=== PATIENT | male | born 1960 | race Caucasian/White ===

== ENCOUNTER 2016-10-14 09:52 | Observation (INO) ==
[2016-10-14] MEDS ORDERED: MORPHINE 2 MG/1 ML SYRINGE IV PRN (10:08)
[2016-10-14] MEDS ORDERED: NITROGLYCERIN 2% OINT 1 INCH/GM PACK TOP STA (10:08)
[2016-10-14] MEDS ORDERED: METOPROLOL TARTRATE 5 MG/5 ML VIAL IV STA (10:08)
[2016-10-14] MEDS ORDERED: ENOXAPARIN 100 MG/ML SYRINGE SUBCUT STA (10:08)
[2016-10-14] MEDS ORDERED: ASPIRIN 325 MG TABLET PO STA (10:08)
[2016-10-14] MEDS ORDERED: ONDANSETRON 4 MG/2 ML VIAL IV PRN (10:08)
[2016-10-14] MEDS ORDERED: NITROGLYCERIN SL 0.4 MG TABLET SL PRN (10:08)
--- NOTE | 2016-10-14 10:11 | EKG Report ---
Stationary ECG Study 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
--- NOTE | 2016-10-14 10:31 | Emergency Department Note ---
Shaheen Martinez Manpreet, am scribing for, and in the presence of, Tera Angeles MD 10: 12. Bridgette Martinez James D, MD, personally performed the services described in this documentation, ascribed by Jackson Jamison in my presence, and it is both accurate and complete . Arrival - Arrival Chief Complaint: Chest Pain Stated Complaint: CHEST PAINS ED Nursing Triage Note: PT C/O MID STERNAL CHEST PAIN X1 WEEK. DESCRIBES "TIGHT." PT STATES HE FEELS LIKE HE NEEDS TO BURP AND CAN NOT. PT SAW DR TURCIOS LAST WEEK FOR SHORTNESS OF BREATH AND WAS PUT ON ANORO INHALER. DENIES DIAPHORESIS OR NAUSEA WITH EPISODES Mode of Arrival: Ambulatory Limitations: No Limitations Source: Patient, RN Notes Reviewed - History of Present Illness HPI Narrative: Pt is a 56 y/o male who presents to the ED with CC of non-radiating CP since the last week. Pt describes the pain as having "pressure" and feels like he needs to burp. Pt denies any diaphoresis, N/V, or cough. Pt c/o SOB that has worsened today and made the pt come to the ED. Pt denies smoking cigarettes but chews tobacco. The pain does not radiate anywhere and the pt denies any arm pain. No other pains/complaints reported to the ED. Onset (ago): week(s) (1 week) Consistency: intermittent Severity: mild, moderate Quality: other (Pressurized ) Allergies/Adverse Reactions: Allergies Allergy/AdvReac Type Severity Reaction Status Date / Time No Known Allergies Allergy Verified 10/14/16 10:02 Review of System - Review of System 12 point system: reviewed and no additional remarkable complaints except as stated - Review of System Constitutional: Absent: chills, diaphoresis, fever Head/Ears/Nose/Throat: Absent: sore throat Respiratory: Present: respiratory distress. Absent: cough, wheezing Cardiovascular: Present: chest pain Gastrointestinal: Absent: abdominal pain, nausea, vomiting, diarrhea Musculoskeletal: Absent: arm pain, back pain Neurological: Absent: headache, weakness, numbness, paresthesias Medical,Surgical,& Family Hx - Medical History Cardio: History of: Hypertension, PVD Endocrine: History of: Diabetes Mellitus (IDDM), Dyslipidemia Gastrointestinal: History of: GERD Other: History of: Miscellaneous Medical Problems (BILATERAL FASCIITIS RELEASE) - Surgical History Orthopedic Surgeries: Surgical HX of;: Orthopedic Surgery (RIGHT 3RD DIGIT) - Social History Smoking Status: Never smoker Frequency of Alcohol Use: None Type of Drug Use: None Exam Vital Signs: Vital Signs Temperature 98.1 F 10/14/16 10:12 Pulse Rate 71 10/14/16 10:12 Respiratory Rate 18 10/14/16 10:12 Blood Pressure 169/92 10/14/16 10:12 O2 Sat by Pulse Oximetry 98 10/14/16 10:09 GENERAL: This is a well-nourished well-developed white male in no apparent distress. VITAL SIGNS: Reviewed HEENT: Head is atraumatic and normocephalic. Pupils are equal round react to light. Extraocular movements are intact. Oropharynx is benign with moist mucous membranes. NECK: Neck is soft and supple without tenderness. There are no masses. There is no lymphadenopathy. LUNGS: Lungs are clear to auscultation. Chest rises symmetrically. There is no chest wall tenderness. CV: Heart is regular rate and rhythm without murmurs rubs or gallops. ABDOMEN: Abdomen is soft, nontender to palpation. There are no abdominal abnormal masses palpated. There is no organomegaly. Bowel sounds are present and active. SKIN: Skin is warm and dry. No rash. EXTREMITIES: Patient has full range of motion without tenderness. There is no pedal edema. NEUROLOGIC: Awake alert and oriented 4. Cranial nerves II through XII are grossly intact. Motor is 5 over 5 in all extremities bilaterally. Course - Consultations Consultation #1: Discussed with cardiology. Patient will be seen in the emergency department. Time: 11:31 Results - Labs CBC & BMP: 10/14/16 10:28 10/14/16 10:28 Lab Results: I have reviewed the patients labs - EKG EKG results: interpreted by ERMD - Impressions EKG: Normal sinus rhythm with a rate of 63, first-degree AV block, left atrial enlargement, nonspecific ST-T wave changes. - Diagnostic Findings Procedure: Chest x-ray: image reviewed by me Disposition Clinical Impression: Chest pain, Essential hypertension Case discussed with: patient Disposition: Still a Patient Condition: Stable
[2016-10-14] MEDS ORDERED: ENOXAPARIN 120 MG/0.8 ML SYRINGE SUBCUT ONE (10:34)
--- NOTE | 2016-10-14 10:34 | XRay Report ---
2 view chest. Indication: Chest pain. The heart is normal in size. The lung denton are hyperexpanded. The pulmonary vasculature is normal. The lung denton are free of infiltrate. No pneumothorax or pleural effusion. Anterior wedging of multiple thoracic vertebra. Demineralization and degenerative change. Impression: No acute cardiopulmonary abnormality. Hyperexpansion of the lung denton may indicate a degree of COPD. Multiple thoracic compression fractures. PROCEDURE INTERPRETED AT [facility] DEPARTMENT OF RADIOLOGY Final Report Signed by: Dr. Annita Aguilar
[2016-10-14 10:35] LABS: Basophils % 0.4 % (0.0-0.8); Eosinophils # 0.2 10*3/uL (0.0-0.87); Eosinophils % 2.7 % (0.00-10.9); Hematocrit 38.1 VOL% (42.0-52.0); Hemoglobin 13.3 GM/DL (14.0-18.0); Immature Granulocytes % 0.7 %; Immature Granulocytes Absolute 0.06 #; Lymphocytes # 1.7 10*3/uL (1.4-4.0); Lymphocytes % 18.9 % (21.2-54.2); Mean Corpuscular HGB Conc 34.9 GM/DL (32-36); Mean Corpuscular Hemoglobin 31 PG (27-34); Mean Platelet Volume 9.3 FL (9.6-12.0); Monocytes # 0.8 10*3/uL (0.11-0.8); Monocytes % 8.5 % (1.7-12.7); Neutrophils # 6.1 10*3/uL (1.4-7.4); Neutrophils % 68.8 % (38.7-73.9); Platelet Count 281 T/CUMM (130-400); Red Blood Count 4.28 MC/CUMM (3.8-5.5); White Blood Count 8.9 T/CUMM (4-12)
[2016-10-14] MEDS ORDERED: METOPROLOL TARTRATE 5 MG/5 ML VIAL IV ONE (10:35)
[2016-10-14] MEDS ORDERED: NITROGLYCERIN 2% OINT 1 INCH/GM PACK TOP ONE (10:35)
[2016-10-14] MEDS ORDERED: ASPIRIN 325 MG TABLET ONE (10:35)
[2016-10-14 10:44] LABS: PT Patient Result 10.7 SECS; Partial Thromboplastin Time 24.5 SECS (0-40)
[2016-10-14] MEDS ORDERED: ALUM/MAG/SIMETH/LIDO VISC 1:1 30 ML BOTTLE PO ONE (10:54)
[2016-10-14] MEDS ORDERED: ALUM/MAG/SIMETH/LIDO VISC 1:1 30 ML BOTTLE PO STA (10:57)
[2016-10-14 11:02] LABS: Albumin 3.8 G/DL (3.4-5.0); Bilirubin,Total 0.4 MG/DL (0.2-1.0); Calcium 9.2 MG/DL (8.5-10.1); Osmolality,Calculated 286.4 MOS/KG (273-304); Total Protein 6.9 G/DL (6.4-8.3)
[2016-10-14] MEDS ORDERED: ONDANSETRON 4 MG/2 ML VIAL ONE (12:26)
[2016-10-14] MEDS ORDERED: MORPHINE 2 MG/1 ML SYRINGE ONE (12:26)
[2016-10-14 12:33] LABS: Apearance,Urine CLEAR (Clear); Bilirubin,Urine Negative (Negative); Blood, Urine Negative (Negative); Glucose,Urine (UA) 50 mg/dL (Negative); Ketones,Urine Negative (Negative); Nitrite,Urine Negative (Negative); Protein,Urine Negative; Urine Color Straw (Yellow); Urine Specific Gravity 1.008 (1.001-1.035); Urine Urobilinogen < 2.0 EU/DL (0.2-1.0)
--- NOTE | 2016-10-14 12:33 | Cardiology History & Physical ---
Assessment and Plan - Time spent with patient Time spent with patient: Greater than 30 minutes Time spent discussing smoking cessation with patient: 3 to 10 minutes (1) Dyspnea on exertion Status: Acute Assessment and plan: SEE PLAN OF CARE LISTED BELOW Current Visit: Yes (2) Diabetes Status: Chronic Assessment and plan: SEE PLAN OF CARE LISTED BELOW Current Visit: Yes (3) Sleep apnea Status: Chronic Assessment and plan: SEE PLAN OF CARE LISTED BELOW Current Visit: Yes (4) Obesity (BMI 35.0-39.9 without comorbidity) Status: Chronic Assessment and plan: SEE PLAN OF CARE LISTED BELOW Current Visit: Yes (5) Tobacco chew use Status: Chronic Assessment and plan: SEE PLAN OF CARE LISTED BELOW Current Visit: Yes (6) Dyslipidemia Status: Chronic Assessment and plan: SEE PLAN OF CARE LISTED BELOW Current Visit: Yes (7) Chest pain Status: Acute Current Visit: Yes (8) Essential hypertension Status: Chronic Assessment and plan: SEE PLAN OF CARE LISTED BELOW Current Visit: Yes History of Present Illness Chief complaint: Chest pain, shortness of breath History of present illness: 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 TORRES (NEW) PCP: DR. JACKSON Mr. Delgado, 56WM, with no known prior history of coronary artery disease but risk factors significant for: hypertension, dyslipidemia, diabetes, obesity, ( chews) tobacco. Presented [facility] the ED of [facility] after experiencing intermittent chest discomfort and shortness of breath for the past week. Chest discomfort is described as a fullness in the center of his chest, previously without radiation however today seemed to radiate laterally across his chest. There is no particular pattern to the discomfort, occurring at various times including with rest and with exertion. He does become mildly more short of breath with the discomfort but no nausea or diaphoresis. Patient has noted over the past several weeks, shortness of breath with exertion has worsened. He has contributed this to asthma. He recently saw his primary care provider and was given a medication which initially helped however symptoms of dyspnea on exertion have returned. Rates the discomfort as a 7 on a scale of 1-10, currently chest pain-free. Symptoms are becoming more intense, occurring more frequently. Cardiac biomarkers are negative. EKG does not reveal OR. Patient is currently NPO. We discussed the possibility of stress testing versus cardiac catheterization. At this point, patient would like to pursue heart catheterization. May need echocardiogram prior to discharge. Fasting lipid profile. Will adjust his antihypertensives accordingly during hospital stay. Will further discuss with Dr. Torres and await additional recommendations. ASSESSMENT/PLAN: 1. CHEST PAIN - concerning for angina 2. WATERS - also concerning for angina 3. HYPERTENSION - usually well controlled. Will adjust medications accordingly during hospital stay. 4. DYSLIPIDEMIA - fasting lipid profile. Continue lipid-lowering agent 5. TOBACCO USE - the merits of tobacco cessation (patient chews tobacco) was discussed for greater than 5 minutes 6. OBESITY - dietary counseling prior to discharge 7. SLEEP APNEA - compliant with sleep device 8. DIABETES - difficult to control and followed by Dr. Jackson. Hold metformin in anticipation of possible cardiac catheterization Home Medications Medication Instructions Recorded Confirmed Type Albiglutide [Tanzeum] 50 mg SUBCUT TH 10/14/16 10/14/16 History Aspirin EC Tab 81 mg PO QPM 10/14/16 10/14/16 History Atorvastatin [Lipitor] 10 mg PO QAM 10/14/16 10/14/16 History Fenofibrate [Tricor] 145 mg PO QAM 10/14/16 10/14/16 History Gabapentin Cap/Tab [Neurontin 300 mg PO QAM 10/14/16 10/14/16 History Cap/Tab] Ibuprofen Tab [Motrin Tab] 800 mg PO BID 10/14/16 10/14/16 History Insulin Glargine,Hum.rec.anlog 0 unit SUBCUT DAILY PRN 10/14/16 10/14/16 History [Lantus SoloStar] Metformin HCl 500 mg PO QPM 10/14/16 10/14/16 History Pantoprazole Tab [Protonix Tab] 40 mg PO QAM 10/14/16 10/14/16 History Pioglitazone HCl 30 mg PO QAM 10/14/16 10/14/16 History Telmisartan [Micardis] 80 mg PO QAM 10/14/16 10/14/16 History Umeclidinium Brm/Vilanterol Tr 1 puff INH 1200 10/14/16 10/14/16 History [Anoro Ellipta] hydroCHLOROthiazide 25 mg PO QAM 10/14/16 10/14/16 History [Hydrochlorothiazide] Allergies Allergy/AdvReac Type Severity Reaction Status Date / Time No Known Allergies Allergy Verified 10/14/16 10:02 Review of systems: REVIEW OF SYSTEMS: - Constitutional Constitutional: Present: Fatigue. Absent: syncope, anorexia, night sweats - EENT Eyes: Absent: blurry vision, loss of vision, diplopia Ears: Absent: decreased hearing, ear pain, ear discharge - Cardiovascular Cardiovascular: Present: chest pain with exertion, chest pain at rest. Dyspnea on exertion. Denies edema, palpitations. Absent: chest pain with deep breath, claudication - Respiratory Respiratory: Present: WATERS, denies cough. Absent: wheezing, hemoptysis, change in phlegm color - Gastrointestinal Gastrointestinal: Denies: constipation. Absent: abdominal pain, hematemesis, hematochezia, melena, change in bowel habits, nausea - Genitourinary Genitourinary: Absent: difficulty urinating, dysuria, urinary hesitancy, flank pain - Musculoskeletal Musculoskeletal: Present: Chronic back pain Absent: joint swelling, muscle cramps, muscle weakness - Neurological Neurological: Present: normal gait without frequent falls. Absent: dizziness, hemiparesis - Psychiatric Psychiatric: Absent: anxiety, depression, difficulty concentrating - Endocrine Endocrine: Present: fatigue. Absent: cold intolerance, heat intolerance, polyuria, polyphagia, polydipsia - Hematologic/Lymphatic Hematologic/Lymphatic: Present: easy bruising. Absent: easy bleeding -Integumentary Integumentary: Absent: lesions, rashes, skin breakdown Medical,Surgical,& Family Hx - Medical History Cardio: History of: Hypertension, PVD No history of: CAD, OR Endocrine: History of: Diabetes Mellitus (IDDM), Dyslipidemia Gastrointestinal: History of: GERD Other: History of: Miscellaneous Medical Problems (BILATERAL FASCIITIS RELEASE) - Surgical History Orthopedic Surgeries: Surgical HX of;: Orthopedic Surgery (RIGHT 3RD DIGIT) - Social History Smoking Status: Light tobacco smoker Have you smoked in the last 12 months: Yes (Smokeless tobacco daily) Time spent discussing smoking cessation with patient: 3 to 10 minutes Frequency of Alcohol Use: None Type of Drug Use: None Marital Status: Lives With:: Spouse Functional capacity: independent ambulation Cardiology Physical Exam - Constitutional Vitals: Vital Signs Temp Pulse Resp BP Pulse Ox 98.1 F 71 18 169/92 98 10/14/16 10:12 10/14/16 10:12 10/14/16 10:12 10/14/16 10:12 10/14/16 10:09 Intake and Output 10/13/16 10/14/1610/14/17 23:59 07:59 15:59 Other: Weight 149.685 kg Patient Weight 10/14/16 23:59 Weight 149.685 kg Exam: General: [Appears well with no apparent distress.] [Pleasant and cooperative. ] [Appears comfortable.] HEENT: [PERRL, normocephalic, atraumatic. Mucous membranes moist. No jaundice noted. Conjunctiva moist and clear, sclerae anicteric] Neck: Unable to assess for JVD due to habitus. No thyromegaly or lymphadenopathy noted. No carotid bruit appreciated Cardiac: [Regular rate and rhythm.] [No murmur rub or gallop.] Lungs: [Clear to auscultation without accessory muscle use to assist the respiratory pattern.] Oxygen in use via nasal cannula Abdomen: Soft, bowel sounds normoactive. Nontender and nondistended. No abdominal bruit or thrill noted. No masses noted. Musculoskeletal: No fluid collection. Decreased range of motion is noted. Extremities: No clubbing, cyanosis noted. [ No edema noted.] Upper extremity pulses 2+. Lower extremity pulses 2+. Capillary refill less than 3 seconds. Skin: No unusual lesions or rashes. No skin breakdown appreciated. Neuro: Awake, alert and oriented 3. Moves all extremities well without hemiparesis or paralysis. No essential tremor is appreciated. Result/EKG - Labs CBC & BMP: 10/14/16 10:28 10/14/16 10:28 Lab Results: I have reviewed the past 24 hour labs Labs: Laboratory Results - last 24 hr 10/14/16 10/14/16 10/14/16 10:28 10:28 10:28 WBC 8.9 RBC 4.28 Hgb 13.3 L Hct 38.1 L MCV 89.0 MCH 31 MCHC 34.9 RDW 14.0 Plt Count 281 MPV 9.3 L Neut % (Auto) 68.8 Lymph % (Auto) 18.9 L Antelope % (Auto) 8.5 Eos % (Auto) 2.7 Baso % (Auto) 0.4 Neut # (Auto) 6.1 Lymph # (Auto) 1.7 Antelope # (Auto) 0.8 Eos # (Auto) 0.2 Baso # (Auto) 0.0 Immature Gran % 0.7 Nucleated RBC % 0.0 Immature Gran # 0.06 Nucleated RBCs # 0.00 Immature Plt Fraction 0.0 INR 1.0 PT Patient/Control Mix 10.7 Circ Anticoag PTT 24.5 Sodium 140 Potassium 4.0 Chloride 107 Carbon Dioxide 25 Anion Gap 12.0 BUN 22 H Creatinine 1.10 GFR Calculation 120 BUN/Creatinine Ratio 20.00 Glucose 182 H Calculated Osmolality 286.4 Calcium 9.2 Total Bilirubin 0.40 AST 25 ALT 34 Alkaline Phosphatase 54 Troponin I Total Protein 6.9 Albumin 3.8 Globulin 3.1 Albumin/Globulin Ratio 1.2 10/14/16 10:28 WBC RBC Hgb Hct MCV MCH MCHC RDW Plt Count MPV Neut % (Auto) Lymph % (Auto) Antelope % (Auto) Eos % (Auto) Baso % (Auto) Neut # (Auto) Lymph # (Auto) Antelope # (Auto) Eos # (Auto) Baso # (Auto) Immature Gran % Nucleated RBC % Immature Gran # Nucleated RBCs # Immature Plt Fraction INR PT Patient/Control Mix Circ Anticoag PTT Sodium Potassium Chloride Carbon Dioxide Anion Gap BUN Creatinine GFR Calculation BUN/Creatinine Ratio Glucose Calculated Osmolality Calcium Total Bilirubin AST ALT Alkaline Phosphatase Troponin I < 0.015 Total Protein Albumin Globulin Albumin/Globulin Ratio - Diagnostic Findings Procedure: Chest x-ray: report reviewed by me - EKG EKG results: interpreted by me EKG shows: sinus rhythm
[2016-10-14] MEDS ORDERED: POTASSIUM CHLORIDE RIDER 10 MEQ in PREMIX 1 EACH IV PRN (12:39)
[2016-10-14] MEDS ORDERED: diphenhydrAMINE CAP 25 MG CAPSULE PO ONE (12:39)
[2016-10-14] MEDS ORDERED: DIAZEPAM 5 MG TABLET PO ONE (12:39)
[2016-10-14] MEDS ORDERED: MAGNESIUM SULF RIDER 2 GM in PREMIX 1 EACH IV PRN ×2 (12:39→13:05)
[2016-10-14 12:46] LABS: Barbiturates Screen,Urine Negative (Negative); Benzodiazepines Screen,Urine Negative (Negative); Cannabinoid Screen,Urine Negative (Negative); Opiate Screen,Urine Negative (Negative); Phencyclidine Screen,Urine Negative (Negative)
[2016-10-14] MEDS ORDERED: ALBIGLUTIDE 50 MG SUBCUT SCH (13:05)
[2016-10-14] MEDS ORDERED: SODIUM CHLORIDE 0.9% 1,000 ML IV SCH (13:05)
[2016-10-14] MEDS ORDERED: MAGNESIUM SULF RIDER 4 GM in PREMIX 1 EACH IV PRN (13:05)
--- NOTE | 2016-10-14 13:22 | EKG Report ---
Stationary ECG Study [facility] Test Date: 10/14/2016 1:21:38 PM Pat Name: CELINE BRAY Department: Room: 277 Gender: M Air Value Tester: DA : 1960 Requested by: Tera Rodriguez Order Number: [id number] Reading MD: GOSIA ELIZONDO Intervals [place] Rate: 57 P: 52 RI: 213 QRS: 61 QRSD: 102 T: 61 QT: 421 QTc: 414 Interpretive Statements SINUS RHYTHM WITH PROLONGED RI INTERVAL Electronically Signed On 10-14-16 17:22:02 CDT by GOSIA ELIZONDO [email or web address]
[2016-10-14 13:30] LABS: Free T4 (Free Thyroxine) 1.32 NG/DL (0.76-1.46); Risk Ratio 5.42; Thyroid Stimulating Hormone 1.36 uIU/ml (0.358-3.74); VLDL CHOLESTEROL 29.4 MG/DL
[2016-10-14] MEDS: SODIUM CHLORIDE 0.45% 1,000 ML IV SCH (13:40)
--- NOTE | 2016-10-14 15:43 | EKG Report ---
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
[2016-10-14] MEDS ORDERED: LIDOCAINE 1% 20 ML VIAL ONE (15:48)
[2016-10-14] MEDS ORDERED: MIDAZOLAM 2 MG/2 ML VIAL ONE (16:01)
[2016-10-14] MEDS ORDERED: HYDROmorphone 2 MG/1 ML VIAL ONE (16:01)
[2016-10-14] MEDS ORDERED: HYDROmorphone 2 MG/1 ML VIAL IV PRN (16:25)
--- NOTE | 2016-10-14 16:34 | Cardiac Catheterization ---
Date of Procedure:: 10/14/16 Post-op diagnosis: same Procedure: Procedure performed: 1. Left heart catheterization 2. Coronary angiography 3. Left ventriculography 4. Right femoral arteriotomy closure with Angio-Seal device Brief clinical summary: Mr. Delgado is a 56-year-old BMI 36.3 gentleman with diabetes hypertension dyslipidemia TRISHA with chest pain shortness of breath with negative cardiac panel. Description of procedure: After obtaining informed consent, the right groin was prepped and draped in the usual sterile fashion. Next a short 6 Turkmen sheath was placed in the right femoral artery using a modified Seldinger technique, after the patient received IV sedation and local anesthetic. Next a JL4 catheter was advanced over a guidewire under fluoroscopic guidance, and was engaged to the left coronary artery after which angiography was performed in multiple views. This was then removed over a wire, and a JR4 catheter was advanced in similar fashion, and was engaged to the right coronary artery after which angiography was performed in multiple views. Next a bent pigtail catheter was advanced into the left ventricle, where hemodynamic measurements were obtained, and left ventriculography was performed. An angiogram of the sheath showed that it was inserted in the right common femoral artery in a vessel suitable for closure. Hemostasis was obtained with Angio-Seal device with no residual bleeding. 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 Coronary angiography: The left main coronary is normal developed and free of disease. Left anterior descending artery is large an average caliber and wraps around the apex. He gives of a tiny first diagonal very large second diagonal branch. There is a 30% discrete stenosis just after the takeoff of the diagonal. The circumflex gives off a very large OM1 branch and a thin OM 2 branch. There is a 30% stenosis in the proximal portion of the OM1. The right coronary artery is essentially average in caliber is a dominant vessel. There is a thin PDA which is early takeoff acute marginal and a couple of thin posterolaterals. There are moderate irregularities in right coronary artery. Left ventriculogram: Left ventricle normal size with normal LV systolic function. Ejection fraction 65%. There are no segmental wall antibodies. There is no significant mitral regurgitation. Impression: 1. Normal LV systolic function with ejection fraction estimated be 65% without segmental wall motion normality 2. Right dominant system 3. Trivial coronary artery disease as detailed above Recommendation discussion: Given these findings is clearly Mr. Delgado he does not have chest pain or dyspnea related to coronary artery disease. Also has normal LV function is encouraging with regard to cardiovascular prognosis. He will need to avoid squatting strain lifting for the next week. Anesthesia: minimal conscious sedation Surgeon / Physician: Bobby Mattson Aids Counselor: other Estimated blood loss: minimal Specimens: none sent Condition: stable Disposition: floor - Medications / Follow-up
[2016-10-14] MEDS ORDERED: ASPIRIN EC 81 MG TABLET PO SCH (19:00)
[2016-10-15] MEDS: IBUPROFEN 800 MG TABLET PO SCH ×2 (04:02→09:04)
[2016-10-15] MEDS: SODIUM CHLORIDE 0.45% 1,000 ML IV SCH (04:03)
[2016-10-15 07:44] VITALS: BP 118/77
[2016-10-15 08:20] LABS: Basophils # 0.1 10*3/uL (0.0-0.2); Basophils % 0.6 % (0.0-0.8); Eosinophils # 0.3 10*3/uL (0.0-0.87); Eosinophils % 3.1 % (0.00-10.9); Hematocrit 38.9 VOL% (42.0-52.0); Hemoglobin 12.9 GM/DL (14.0-18.0); Immature Granulocytes % 0.7 %; Immature Granulocytes Absolute 0.06 #; Lymphocytes # 1.7 10*3/uL (1.4-4.0); Lymphocytes % 20.4 % (21.2-54.2); Mean Corpuscular HGB Conc 33.2 GM/DL (32-36); Mean Corpuscular Hemoglobin 30 PG (27-34); Mean Corpuscular Volume 91.3 FL (87-102); Mean Platelet Volume 9.4 FL (9.6-12.0); Monocytes # 0.7 10*3/uL (0.11-0.8); Neutrophils # 5.5 10*3/uL (1.4-7.4); Neutrophils % 67.2 % (38.7-73.9); Platelet Count 270 T/CUMM (130-400); Red Blood Count 4.26 MC/CUMM (3.8-5.5); White Blood Count 8.1 T/CUMM (4-12)
[2016-10-15 08:54] LABS: Calcium 8.9 MG/DL (8.5-10.1); Magnesium 1.9 MG/DL (1.8-2.4); Osmolality,Calculated 280.4 MOS/KG (273-304); Potassium 3.9 MMOL/L (3.5-5.1)
[2016-10-15] MEDS ORDERED: PANTOPRAZOLE 40 MG TABLET PO SCH ×2 (09:00→21:00)
[2016-10-15] MEDS ORDERED: FENOFIBRATE 145 MG TABLET PO SCH (09:00)
[2016-10-15] MEDS ORDERED: PIOGLITAZONE 15 MG TABLET PO SCH (09:00)
[2016-10-15] MEDS ORDERED: ATORVASTATIN 10 MG TABLET PO SCH (09:00)
[2016-10-15] MEDS ORDERED: TELMISARTAN 40 MG TABLET PO SCH (09:00)
[2016-10-15] MEDS ORDERED: hydroCHLOROthiazide 25 MG TABLET PO SCH (09:00)
[2016-10-15] MEDS ORDERED: GABAPENTIN 300 MG CAPSULE PO SCH (09:00)
--- NOTE | 2016-10-15 09:39 | Discharge Summary ---
Hospital Course - Hospital Course Hospital Course: [employer] STEWARD/STEWARDESS: DR. TORRES (NEW) PCP: DR. TURCIOS OCTOBER 14, 2016: Mr. Delgado, 56WM, with no known prior history of coronary artery disease but risk factors significant for: hypertension, dyslipidemia, diabetes, obesity, (chews) tobacco. Presented to the ED of [facility] after experiencing intermittent chest discomfort and shortness of breath for the past week. Chest discomfort is described as a fullness in the center of his chest, previously without radiation however today seemed to radiate laterally across his chest. There is no particular pattern to the discomfort, occurring at various times including with rest and with exertion. He does become mildly more short of breath with the discomfort but no nausea or diaphoresis. Patient has noted over the past several weeks, shortness of breath with exertion has worsened. He has contributed this to asthma. He recently saw his primary care provider and was given a medication which initially helped however symptoms of dyspnea on exertion have returned. Rates the discomfort as a 7 on a scale of 1- 10, currently chest pain-free. Symptoms are becoming more intense, occurring more frequently. Cardiac biomarkers are negative. EKG does not reveal MA. Patient underwent cardiac catheterization performed by Dr. Mattson with the following impression noted: Impression: 1. Normal LV systolic function with ejection fraction estimated be 65% without segmental wall motion normality 2. Right dominant system 3. Trivial coronary artery disease as detailed above Recommendation/discussion from Dr. Mattson includes: Given the above findings Mr. Delgado does not have chest pain or dyspnea related to coronary artery disease. Also has normal LV function is encouraging with regard to cardiovascular prognosis. He will need to avoid squatting strain lifting for the next week. OCTOBER 15, 2016: Overnight, he has done well without chest pain, heaviness, tightness. He has been ambulating without difficulty. Right groin is soft, free of hematoma or bruit. He would like to be discharged home today and I believe this is reasonable. He has previously seen Dr. Deandre Prater a colonoscopy routinely as his father from colon cancer. He will also discuss his noncardiac chest pain with Dr. Prater at next appointment but in the meantime, will increase PPI to BID for 6 weeks. Will further discuss with Dr. Torres and plan for discharge today. - Time spent with patient Time with patient DS: Greater than 30 minutes Time spent discussing smoking cessation with patient: 3 to 10 minutes Diagnosis - Discharge Diagnosis (1) Dyspnea on exertion Status: Acute (2) Diabetes Status: Chronic (3) Sleep apnea Status: Chronic (4) Obesity (BMI 35.0-39.9 without comorbidity) Status: Chronic (5) Tobacco chew use Status: Chronic (6) Dyslipidemia Status: Chronic (7) Chest pain Status: Acute (8) Essential hypertension Status: Chronic Specialty Discharge - Follow Up or Referrals Follow up with: Dejon Torres MD [Physician] - (2-3 weeks.) Discharge Plan - Discharge Data Disposition: Disch To Home/Self Care Condition at Discharge: Stable Discharge Diet: diabetic diet Activity: other (Post cath expectations) Hygiene: other (Post cath expectations) Weight Bearing at Discharge: other (Post cath expectations) Driving: other (Post cath expectations) Contact your physician if you experience:: fever over 101, Difficulty voiding, Redness or swelling, Nausea/Vomiting, Shortness of breath, Bleeding, pain uncontrolled by pain medications - Discharge Medications New Pantoprazole Tab [Protonix Tab] 40 mg PO BID #60 tablet Continue Ibuprofen Tab [Motrin Tab] 800 mg PO BID Gabapentin Cap/Tab [Neurontin Cap/Tab] 300 mg PO QAM Pioglitazone HCl 30 mg PO QAM Aspirin EC Tab 81 mg PO QPM Telmisartan [Micardis] 80 mg PO QAM Atorvastatin [Lipitor] 10 mg PO QAM Umeclidinium Brm/Vilanterol Tr [Anoro Ellipta] 1 puff INH 1200 Insulin Glargine,Hum.rec.anlog [Lantus SoloStar] 0 unit SUBCUT DAILY PRN PRN Reason: SLIDING SCALE >130 Metformin HCl 500 mg PO QPM hydroCHLOROthiazide [Hydrochlorothiazide] 25 mg PO QAM Fenofibrate [Tricor] 145 mg PO QAM Albiglutide [Tanzeum] 50 mg SUBCUT TH Discontinued Pantoprazole Tab [Protonix Tab] 40 mg PO QAM - Follow Up or Referral - Forms/Instructions Instructions: Left Heart Catheterization (DC) Additional Discharge Instructions: Resume Metformin Tuesday morning. Hold patient until Dr. Torres has seen then june discharge. Exam - Constitutional Vitals: Period Temp Pulse Resp BP Sys/Giron Pulse Ox Last 24 Hr 97.1 F-98.1 F 49-71 16-20 116-169/71-92 94-99 Exam: General: [Appears well with no apparent distress.] [Pleasant and cooperative. ] [Appears comfortable.] HEENT: [PERRL, normocephalic, atraumatic. Mucous membranes moist. No jaundice noted. Conjunctiva moist and clear, sclerae anicteric] Neck: No JVD/HJR, no thyromegaly or lymphadenopathy noted. No carotid bruit appreciated Cardiac: [Regular rate and rhythm.] [No murmur rub or gallop.] Lungs: [Clear to auscultation without accessory muscle use to assist the respiratory pattern.] Not requiring oxygen Abdomen: Soft, bowel sounds normoactive. Nontender and nondistended. No abdominal bruit or thrill noted. No masses noted. Musculoskeletal: No fluid collection. Decreased range of motion is noted. Extremities: Right groin soft, free of hematoma or bruit. No clubbing, cyanosis noted. [ No edema noted.] Upper extremity pulses 2+. Lower extremity pulses 2+. Capillary refill less than 3 seconds. Skin: No unusual lesions or rashes. No skin breakdown appreciated. Neuro: Awake, alert and oriented 3. Moves all extremities well without hemiparesis or paralysis. No essential tremor is appreciated. Discharge Results Labs on day of discharge: Labs from last 24 hours 10/15/16 10/15/16 10/15/16 08:09 08:09 08:04 WBC 8.1 RBC 4.26 Hgb 12.9 L Hct 38.9 L MCV 91.3 MCH 30 MCHC 33.2 RDW 14.0 Plt Count 270 MPV 9.4 L Neut % (Auto) 67.2 Lymph % (Auto) 20.4 L Pike % (Auto) 8.0 Eos % (Auto) 3.1 Baso % (Auto) 0.6 Neut # (Auto) 5.5 Lymph # (Auto) 1.7 Pike # (Auto) 0.7 Eos # (Auto) 0.3 Baso # (Auto) 0.1 Immature Gran % 0.7 Nucleated RBC % 0.0 Immature Gran # 0.06 Nucleated RBCs # 0.00 Immature Plt Fraction 0.0 INR PT Patient/Control Mix Circ Anticoag PTT Sodium 140 Potassium 3.9 Chloride 106 Carbon Dioxide 30 Anion Gap 7.9 BUN 16 Creatinine 1.10 GFR Calculation 120 BUN/Creatinine Ratio 14.00 Glucose 112 H POC Glucose 122 H Calculated Osmolality 280.4 Calcium 8.9 Magnesium 1.9 Total Bilirubin AST ALT Alkaline Phosphatase Troponin I Total Protein Albumin Globulin Albumin/Globulin Ratio Triglycerides Cholesterol LDL Cholesterol VLDL Cholesterol HDL Cholesterol Heart Disease Risk Ratio Free T4 TSH 3rd Generation Urine Color Urine Appearance Urine pH Ur Specific [place] Urine Protein Urine Glucose (UA) Urine Ketones Urine Blood Urine Nitrate Urine Bilirubin Urine Urobilinogen Urine Leukocytes Ur Culture Indicated? Urine Opiates Screen Ur Barbiturates Screen Ur Phencyclidine Scrn U Amphetamine/Methamph U Benzodiazepines Scrn U Cocaine Metab Screen U Cannabinoids Screen 10/14/16 10/14/16 10/14/16 20:09 17:36 13:22 WBC RBC Hgb Hct MCV MCH MCHC RDW Plt Count MPV Neut % (Auto) Lymph % (Auto) Pike % (Auto) Eos % (Auto) Baso % (Auto) Neut # (Auto) Lymph # (Auto) Pike # (Auto) Eos # (Auto) Baso # (Auto) Immature Gran % Nucleated RBC % Immature Gran # Nucleated RBCs # Immature Plt Fraction INR PT Patient/Control Mix Circ Anticoag PTT Sodium Potassium Chloride Carbon Dioxide Anion Gap BUN Creatinine GFR Calculation BUN/Creatinine Ratio Glucose POC Glucose 120 H Calculated Osmolality Calcium Magnesium Total Bilirubin AST ALT Alkaline Phosphatase Troponin I < 0.015 < 0.015 Total Protein Albumin Globulin Albumin/Globulin Ratio Triglycerides Cholesterol LDL Cholesterol VLDL Cholesterol HDL Cholesterol Heart Disease Risk Ratio Free T4 TSH 3rd Generation Urine Color Urine Appearance Urine pH Ur Specific [place] Urine Protein Urine Glucose (UA) Urine Ketones Urine Blood Urine Nitrate Urine Bilirubin Urine Urobilinogen Urine Leukocytes Ur Culture Indicated? Urine Opiates Screen Ur Barbiturates Screen Ur Phencyclidine Scrn U Amphetamine/Methamph U Benzodiazepines Scrn U Cocaine Metab Screen U Cannabinoids Screen 10/14/16 10/14/16 10/14/16 10:28 10:28 10:28 WBC 8.9 RBC 4.28 Hgb 13.3 L Hct 38.1 L MCV 89.0 MCH 31 MCHC 34.9 RDW 14.0 Plt Count 281 MPV 9.3 L Neut % (Auto) 68.8 Lymph % (Auto) 18.9 L [place]ike % (Auto) 8.5 Eos % (Auto) 2.7 Baso % (Auto) 0.4 Neut # (Auto) 6.1 Lymph # (Auto) 1.7 Pike # (Auto) 0.8 Eos # (Auto) 0.2 Baso # (Auto) 0.0 Immature Gran % 0.7 Nucleated RBC % 0.0 Immature Gran # 0.06 Nucleated RBCs # 0.00 Immature Plt Fraction 0.0 INR PT Patient/Control Mix Circ Anticoag PTT Sodium Potassium Chloride Carbon Dioxide Anion Gap BUN Creatinine GFR Calculation BUN/Creatinine Ratio Glucose POC Glucose Calculated Osmolality Calcium Magnesium Total Bilirubin AST ALT Alkaline Phosphatase Troponin I < 0.015 Total Protein Albumin Globulin Albumin/Globulin Ratio Triglycerides 147 Cholesterol 141 LDL Cholesterol 84.0 VLDL Cholesterol 29.4 HDL Cholesterol 26 L Heart Disease Risk Ratio 5.42 Free T4 1.32 TSH 3rd Generation 1.360 Urine Color Urine Appearance Urine pH Ur Specific [place] Urine Protein Urine Glucose (UA) Urine Ketones Urine Blood Urine Nitrate Urine Bilirubin Urine Urobilinogen Urine Leukocytes Ur Culture Indicated? Urine Opiates Screen Ur Barbiturates Screen Ur Phencyclidine Scrn U Amphetamine/Methamph U Benzodiazepines Scrn U Cocaine Metab Screen U Cannabinoids Screen 10/14/16 10/14/16 10/14/16 10:28 10:28 10:28 WBC RBC Hgb Hct MCV MCH MCHC RDW Plt Count MPV Neut % (Auto) Lymph % (Auto) Pike % (Auto) Eos % (Auto) Baso % (Auto) Neut # (Auto) Lymph # (Auto) Pike # (Auto) Eos # (Auto) Baso # (Auto) Immature Gran % Nucleated RBC % Immature Gran # Nucleated RBCs # Immature Plt Fraction INR PT Patient/Control Mix Circ Anticoag PTT Sodium 140 Potassium 4.0 Chloride 107 Carbon Dioxide 25 Anion Gap 12.0 BUN 22 H Creatinine 1.10 GFR Calculation 120 BUN/Creatinine Ratio 20.00 Glucose 182 H POC Glucose Calculated Osmolality 286.4 Calcium 9.2 Magnesium Total Bilirubin 0.40 AST 25 ALT 34 Alkaline Phosphatase 54 Troponin I Total Protein 6.9 Albumin 3.8 Globulin 3.1 Albumin/Globulin Ratio 1.2 Triglycerides Cholesterol LDL Cholesterol VLDL Cholesterol HDL Cholesterol Heart Disease Risk Ratio Free T4 TSH 3rd Generation Urine Color Straw Urine Appearance Clear Urine pH 7.0 Ur Specific [place] 1.008 Urine Protein Negative Urine Glucose (UA) 50 Urine Ketones Negative Urine Blood Negative Urine Nitrate Negative Urine Bilirubin Negative Urine Urobilinogen < 2.0 H Urine Leukocytes Negative Ur Culture Indicated? Not indicated Urine Opiates Screen Negative Ur Barbiturates Screen Negative Ur Phencyclidine Scrn Negative U Amphetamine/Methamph Negative U Benzodiazepines Scrn Negative U Cocaine Metab Screen Negative U Cannabinoids Screen Negative 10/14/16 10:28 WBC RBC Hgb Hct MCV MCH MCHC RDW Plt Count MPV Neut % (Auto) Lymph % (Auto) [place]ike % (Auto) Eos % (Auto) Baso % (Auto) Neut # (Auto) Lymph # (Auto) [place] # (Auto) Eos # (Auto) Baso # (Auto) Immature Gran % Nucleated RBC % Immature Gran # Nucleated RBCs # Immature Plt Fraction INR 1.0 PT Patient/Control Mix 10.7 Circ Anticoag PTT 24.5 Sodium Potassium Chloride Carbon Dioxide Anion Gap BUN Creatinine GFR Calculation BUN/Creatinine Ratio Glucose POC Glucose Calculated Osmolality Calcium Magnesium Total Bilirubin AST ALT Alkaline Phosphatase Troponin I Total Protein Albumin Globulin Albumin/Globulin Ratio Triglycerides Cholesterol LDL Cholesterol VLDL Cholesterol HDL Cholesterol Heart Disease Risk Ratio Free T4 TSH 3rd Generation Urine Color Urine Appearance Urine pH Ur Specific [place] Urine Protein Urine Glucose (UA) Urine Ketones Urine Blood Urine Nitrate Urine Bilirubin Urine Urobilinogen Urine Leukocytes Ur Culture Indicated? Urine Opiates Screen Ur Barbiturates Screen Ur Phencyclidine Scrn U Amphetamine/Methamph U Benzodiazepines Scrn U Cocaine Metab Screen U Cannabinoids Screen - Imaging and Cardiology Cardiology Procedure: report reviewed by me Procedure: Chest x-ray: report reviewed by me DS: Provider Date of admission: 10/14/16 12:14 Primary care physician: . No PCP Attending physician on admission: Dejon Torres MD Discharging clinician: Pretty Arango NP Expected date of discharge: 10/15/16
[2016-10-15] MEDS ORDERED: Umeclidinium Brm/Vilanterol Tr [Anoro Ellipta] 1 PUFF INH SCH (12:00)
== END 2016-10-15 11:49 | disposition home or self-care (01) ==
LOC: N.EDINP 09:52 → N.ED 09:52 → N.TELES 12:48
PROVIDERS: ADMIT Internal Medicine Cardiovascular Disease; ATTEND Internal Medicine Cardiovascular Disease
PROC: CLCCHCL (ICD-10-PCS; 2016-10-14 15:45)